=== PATIENT | male | born 1965 | race Caucasian/White ===

== ENCOUNTER 2017-02-06 17:29 | Emergency (ER) | payer OTHER ==
[~2017-02-06] VITALS: Ht 180.3 cm; Wt 81.6 kg
[~2017-02-06 17:29] MED LIST: A/B OTIC15 ML; ACTONEL35 MG PO; ALLOPURINOL100 MG PO; ARANESP0.025 MG/1 IJ; CEL250 PO; CLEOCIN HCL300 MG PO; COSOPT OCUMETER10 ML OU; DEXTROSE OU; DOXERCALCIFER0.5 MCG PO; HECTOROL0.5 MCG PO; KETOCONAZOLE2% TP; LAC PO; LAC30L PO; LAMISIL; LASIX40 MG PO; LISINOPRIL2.5 MG PO; PHOS LO PO; PRO10I SQ; PROCRIT10000 U/ML SQ; PROGRAF1 MG PO; RAPAMUNE1 MG PO; RESTORIL30 MG PO; SIMBRINZA8 ML OP; SODIUM BICARBO650 MG PO; TOBRAMYCIN OU; XIFAXAN550 M1 PO
[2017-02-06 19:15] VITALS: BP 96/61
== END 2017-02-06 19:15 | disposition home or self-care (01) ==
LOC: ED 17:29
DX: T82.838A Hemorrhage due to vascular prosthetic devices, implants and grafts, initial encounter (principal); Y82.9 Unspecified medical devices associated with adverse incidents; Y92.89 Other specified places as the place of occurrence of the external cause